=== PATIENT | male | born 1975 | race Caucasian/White ===

== ENCOUNTER 2018-11-27 12:48 | Emergency (ER) | payer MEDICAID ==
[~2018-11-27] VITALS: Ht 172.7 cm; Wt 86.2 kg
[2018-11-27 13:02] VITALS: BP 118/71
--- NOTE | 2018-11-27 13:19 | PHYS DOC ---
Adult General Chief Complaint Chief Complaint: ABSCESS HPI HPI Patient is a 43 year old female presents with abscesses to right forearm, right upper thigh, and right knee. He states that he used to get abscesses a lot, and diagnosed with MRSA. States she's been working out in the yard, and of the abscesses started 2 days ago. Rates his pain level is 7 out of 10 in severity and sharp. Has not taking medicine prior to arrival. Review of Systems Review of Systems Constitutional: Denies fever or chills [] Eyes: Denies change in visual acuity, redness, or eye pain [] HENT: Denies nasal congestion or sore throat [] Respiratory: Denies cough or shortness of breath [] Cardiovascular: No additional information not addressed in HPI [] GI: Denies abdominal pain, nausea, vomiting, bloody stools or diarrhea [] : Denies dysuria or hematuria [] Musculoskeletal: Denies back pain or joint pain [] Integument: Reports abscess to R knee, thigh, and left forearm. Neurologic: Denies headache, focal weakness or sensory changes [] Endocrine: Denies polyuria or polydipsia [] Complete systems were reviewed and found to be within normal limits, except as documented in this note. Current Medications Current Medications Current Medications Medications (Trade) Dose Ordered Sig/Patrick Start Time Stop Time Status Last Admin Dose Admin Lidocaine HCl 20 ml 1X ONCE 11/27/18 13:30 11/27/18 13:37 DC Allergies Allergies Allergies Coded Allergies Type Severity Reaction Last Updated Verified codeine Allergy Intermediate 11/27/18 Yes Physical Exam Physical Exam Constitutional: Well developed, well nourished, no acute distress, non-toxic appearance. [] HENT: Normocephalic, atraumatic, bilateral external ears normal, oropharynx moist, no oral exudates, nose normal. [] Eyes: PERRLA, EOMI, conjunctiva normal, no discharge. [] Neck: Normal range of motion, no tenderness, supple, no stridor. [] Cardiovascular:Heart rate regular rhythm, no murmur [] Lungs & Thorax: Bilateral breath sounds clear to auscultation [] Abdomen: Bowel sounds normal, soft, no tenderness, no masses, no pulsatile masses. [] Skin: abscess to right forearm and right upper thigh that has flatulence, and is erythematous. Back: No tenderness, no CVA tenderness. [] Extremities: No tenderness, no cyanosis, no clubbing, ROM intact, no edema. [] Neurologic: Alert and oriented X 3, normal motor function, normal sensory function, no focal deficits noted. [] Psychologic: Affect normal, judgement normal, mood normal. [] Current Patient Data Vital Signs Vital Signs Date Time Temp Pulse Resp B/P (MAP) Pulse Ox O2 Delivery O2 Flow Rate FiO2 11/27/18 13:02 98.3 89 14 118/71 (87) 98 Room Air 98.3 EKG EKG [] Radiology/Procedures Radiology/Procedures Indication: abscess to right thigh, and right forearm. Procedure: The patient was positioned appropriately. Local anesthesia was 2% lidocaine. An incision was then made over the apex of the lesion and exudate material was expressed. The drainage cavity was irrigated and the right thigh was packed with sterile gauze. The patient�s tetanus status was < 5 years so did not need updated. The patient tolerated the procedure well. Complications: none.[] Course & Med Decision Making Course & Med Decision Making Pertinent Labs and Imaging studies reviewed. (See chart for details) Patient has cellulitis and abscess. Will perform I/D on thigh and forearm. Will d/c home with antibiotics. Dragon Disclaimer Dragon Disclaimer This electronic medical record was generated, in whole or in part, using a voice recognition dictation system. Departure Departure Impression: Primary Impression: Cellulitis and abscess of lower extremity Additional Impression: Cellulitis and abscess of upper extremity Disposition: 01 HOME, SELF-CARE Condition: STABLE Referrals: DA MITCHELL MD (PCP) Patient Instructions: Abscess, Cellulitis Additional Instructions: Thank you for visiting [facility]. We appreciate you trusting us with your care. If any additional problems come up don't hesitate to return to visit us. Please follow up with your primary care provider so they can plan additional care if needed and know about the problem that you had. If symptoms worsen come back to the Emergency Department. Any concerning symptoms that start such as chest pain, shortness of air, weakness or numbness on one side of the body, running high fevers or any other concerning symptoms return to the ER. You have been prescribed an antibiotic today to help fight your infection. Please take all of the antibiotic as directed. If after 48 hours the infection is not improving, please return for more care. If the infection worsens, return to ER for additional care. Please fill your medications at any pharmacy and follow the prescription instructions. Please return to ER if starts getting worse or streaking. Scripts Doxycycline Hyclate (DOXYCYCLINE HYCLATE) 100 Mg Capsule 1 CAP PO BID for 7 Days, #14 CAP Prov: SARAH HERNANDEZ APRN 11/27/18 Clindamycin Hcl (CLINDAMYCIN HCL) 150 Mg Capsule 450 MG PO TID for 10 Days, #90 CAP Prov: SARAH HERNANDEZ APRN 11/27/18 Problem Qualifiers SARAH HERNANDEZ APRN Nov 27, 2018 13:19
[2018-11-27] MEDS ORDERED: CLIN150C14 PO (13:22)
[2018-11-27] MEDS ORDERED: DOXY100C2 PO (13:22)
[2018-11-27] MEDS ORDERED: LIDOCAINE 2% 20 ML VIAL. IJ ONE (13:30)
== END 2018-11-27 14:23 | disposition home or self-care (01) ==
LOC: ER 12:48
DX: L02.413 Cutaneous abscess of right upper limb (principal); L02.415 Cutaneous abscess of right lower limb; Z88.5 Allergy status to narcotic agent
CPT/HCPCS: 10061; 99284-25